=== PATIENT | male | born 1955 | race Caucasian/White ===

== ENCOUNTER 2019-11-13 07:11 | Day surgery (SDC) | payer OTHER, BC ==
[2019-11-09 13:23] VITALS: BMI 28.6
[2019-11-13] MEDS ORDERED: TETRACAINE 0.5% OPHTH SOLN 2 ML BOTTLE ONE (09:31)
[2019-11-13] MEDS ORDERED: POVIDONE-IODINE 5% OPHTHALMIC PREP 30 ML SOLUTION ONE (09:31)
[2019-11-13] MEDS ORDERED: LIDOCAINE 1%/EPI 1:100000 (20 ML MULTI DOSE VIAL) ONE (09:31)
[2019-11-13] MEDS ORDERED: BACITRACIN/POLYMYXIN OPH OINT 3.5 GM TUBE ONE (09:31)
[2019-11-13] MEDS ORDERED: ERYTHROMYCIN 0.5% OPHTHALMIC OINTMENT 3.5 GM TUBE ONE (09:31)
[2019-11-13] MEDS ORDERED: PROPOFOL 20 ML ONE ×3 (09:56→11:00)
[2019-11-13] MEDS ORDERED: MIDAZOLAM HCL 2 MG/2 ML SINGLE DOSE VIAL ONE ×2 (09:56)
[2019-11-13] MEDS ORDERED: ceFAZolin SODIUM 1 GM VIAL ONE (10:26)
[2019-11-13] MEDS ORDERED: ONDANSETRON 4 MG/2 ML VIAL ONE (10:33)
[2019-11-13] MEDS ORDERED: DEXAMETHASONE SOD PHOSPHATE 4 MG/1 ML VIAL ONE (10:33)
--- NOTE | 2019-11-13 12:12 | OP ---
DATE OF OPERATION: 11/13/2019 PREOPERATIVE DIAGNOSIS: Ptosis, right upper lid and ptosis, left upper lid, greater on the left. PROCEDURE: Repair of ptosis, right upper lid with conjunctival and Darling muscle resection and repair of ptosis left upper lid with conjunctival and Darling muscle resection. The right upper lid was a 7.5-mm resection. The left upper lid was an 8.5-mm resection. SURGEON: Thomas Granados MD LINE PREP COOK: None. ANESTHESIA: Local with sedation. COMPLICATIONS: None. ESTIMATED BLOOD LOSS: 2 mL, perhaps 3 mL. OPERATIVE REPORT: Patient brought to the operating room, placed on the operating room table. Vital signs were monitored by anesthesia. Tetracaine was placed in both eyes. The amount of resection that had been previously marked on the cheek to ensure correct resections were performed. Time-out was performed. Intravenous sedation was administered. The lids were everted, and a subconjunctival injection of 2% Xylocaine, 1:100,000 epinephrine was injected for a total of 0.5 to 1 mL in both upper lids just above the tarsal plate and a small amount centrally on the skin of the upper lids for a total of 1 mL in preparation for a traction suture. Massage was applied gently for hemostasis. The patient was prepped and draped in the usual sterile fashion, and the same procedure was performed in each eye. A 4-0 silk traction suture was passed through the central lid margin of the upper lid. The lid was everted over a Desmarres retractor. On the right side, caliper was set at 1/2 of 7.5 mm, which would be 3.75 mm. This was checked against a ruler, and a spot was made just above the central portion of the highest point of the tarsus, and 7 mm nasal and temporal to this, additional points were placed. A 6-0 silk suture was then run through each of the 3 conjunctival nogueira, nasal, central, and temporal, and the suture was used as a traction suture. The conjunctivae was diffusely from the overlying levator muscle, and Darling muscle by tenting it up with the forceps. The Desmarres was removed, the traction suture was used to elevate the conjunctiva on Darling muscle and then the Putterman clamp was placed over the double folded conjunctiva and Darling resection and locked. A double arm 6-0 plain suture was run from temporal to nasal 1.5 mm away from the clamp. The tissue within the clamp was resected with a 15 blade avoiding the suture and then the suture was run back from nasal to temporal in a baseball-type fashion. Each arm was passed through the conjunctiva and then through the wound and exited temporally on the eyelid where it was tied as a locking knot. It should be noted that on the right upper lid 1 of the suture arms was somehow cut and, therefore, an additional 6-0 plain suture had to be used to suture to the initial arm and then the suture knot was then buried within the conjunctival surface and that suture was then brought out through the conjunctiva and tied externally tying the knot. An additional 6-0 plain suture was placed over the knot in buried fashion closing the conjunctiva to avoid any exposure of the knot. On the left side, there was no breakage of suture. The same procedure was performed identical with a 4-0 silk traction suture eversion of the lid marking 8.5 mm above central tarsus at this time and 7 mm nasal and temporal to this elevating the conjunctiva and Darling muscle with the forceps and then using 6-0 silk traction sutures for each of the nogueira to elevate the double folded conjunctiva and Darling muscle incorporating it in the clamp running a double arm 6-0 plain suture 1.5 mm away from the clamp from temporal to nasal and then resecting the tissue running it back in a baseball-type fashion and passing each arm of the 6-0 plain through the conjunctiva then through the full thickness of the eyelid tying it externally being sure that the wound was closed and that the suture was pulled tightly prior to tying as was done on the right. This completed the procedure. Erythromycin ointment was placed in the eye and on the sutures of the upper lid, and the patient was taken to recovery room in stable condition. Ahmet [id number]
[2019-11-13] MEDS ORDERED: ONDANSETRON 4 MG/2 ML VIAL IVPUSH PRN (12:40)
[2019-11-13] MEDS ORDERED: oxyCODONE HCL 5 MG TABLET PO PRN (12:40)
[2019-11-13] MEDS ORDERED: LACTATED RINGERS SOLUTION 1,000 ML IV SCH (12:45)
[2019-11-13 14:58] VITALS: BP 125/78; PULSE 65; TEMP 97.6
--- NOTE | 2019-11-16 14:59 | PATH ---
Surgical Pathology Report Patient Name: KIARRA MONTENEGRO Med. Rec. #: [id number] /Age/Gender: 1955 (Age: 64) / M Account: [id number] Location: [facility] Taken: 11/13/2019 Received: 11/13/2019 Reported: 11/16/2019 Physicians: Thomas Granados Specimen(s) Received A: RIGHT MULLERS MUSCLE RESECTION B: LEFT MULLERS MUSCLE RESECTION Clinical History Ptosis bilateral upper eyelids Final Diagnosis A. MONROY'S MUSCLE, RIGHT, RESECTION: CONJUNCTIVAL MUCOSA WITH FOCAL MILD CHRONIC INFLAMMATION, FIBROCONNECTIVE TISSUE, AND UNDERLYING SMOOTH (MONROY'S) MUSCLE. B. MONROY'S MUSCLE, LEFT, RESECTION: CONJUNCTIVAL MUCOSA WITH MILD CHRONIC INFLAMMATION, FIBROCONNECTIVE TISSUE, AND UNDERLYING SMOOTH (MONROY'S) MUSCLE. Electronically Signed Bobbi Mcmanus M.D. Gross Description A. Received in formalin labeled "right Monroy's muscle resection," is a 1.1 x 0.3 x 0.1 cm resendiz portion of soft tissue. The specimen is submitted in toto in one cassette. B. Received in formalin labeled "left Monroy's muscle resection," is a 1.5 x 0.3 x 0.1 cm resendiz brown portion of soft tissue. The specimen is submitted in toto in one cassette. 11/15/201911/15/2019
== END 2019-11-13 13:20 | disposition home or self-care (01) ==
LOC: FASU 07:11
PROVIDERS: ATTEND Ophthalmology
PROC: 08SN0ZZ Reposition Right Upper Eyelid, Open Approach (ICD-10-PCS; 2019-11-13)
PROC: 08SP0ZZ Reposition Left Upper Eyelid, Open Approach (ICD-10-PCS; principal; 2019-11-13 10:25)
DX: H02.423 Myogenic ptosis of bilateral eyelids (principal)
CPT/HCPCS: 36415; 85032; 88304-TC; 94760